=== PATIENT | female | born 1995 | race Caucasian/White ===

== ENCOUNTER 2016-10-20 10:16 | Emergency (ER) | payer MEDICAID ==
[2016-10-20] MEDS ORDERED: ALBUTEROL 3 ML DEYVIAL ONE (10:35)
[2016-10-20 10:38] VITALS: BP 135/75; RESP 18; TEMP 98.2
--- NOTE | 2016-10-20 10:39 | EDPHY ---
H & P Stated Complaint: cough since last sunday, felt feverish, nausea and diarrhea. Time Seen by Provider: 10/20/16 10:32 HPI/ROS: Chief Complaint: Cough HPI: 21-year-old woman presenting with 1 week of cough productive of clear to whitish sputum for, subjective chills but has not taken her temperature at home. No shortness of breath. No chest pain. She is a smoker of both cigarettes and marijuana daily. No nausea or vomiting. Some loose stools. No blood or melena. ROS: 10 point Review of Systems is negative except as noted in the HPI. PMH: None Medications none Allergies: None Social History: Positive smoking, positive alcohol, daily marijuana Family History: non-contributory Physical Exam: Gen: Awake, Alert, No Distress HEENT: Nose: no rhinorrhea Eyes: PERRLA, EOMI Mouth: Moist mucosa Neck: Supple, no JVD Chest: nontender, diffuse expiratory wheezing, no focal crackles Heart: S1, S2 normal, no murmur Abd: Soft, non-tender, no guarding Back: no CVA tenderness, no midline tenderness Ext: no edema, non-tender Skin: no rash Neuro: CN II-XII intact, Sensation grossly intact, Strength 5/5 in bilateral upper and lower extremities - Personal History LMP (Females 10-55): 15-21 Days Ago - Medical/Surgical History Other PMH: kidney infections - Social History Smoking Status: Current every day smoker Constitutional: Initial Vital Signs Temperature (C) 36.8 C 10/20/16 10:30 Heart Rate 80 10/20/16 10:30 Respiratory Rate 18 10/20/16 10:30 Blood Pressure 135/75 H 10/20/16 10:30 O2 Sat (%) 93 10/20/16 10:30 O2 Delivery Mode Room Air Allergies/Adverse Reactions: No Known Allergies Allergy (Unverified 10/20/16 10:29) Home Medications: Medication Instructions Recorded Albuterol [Proventil Inhaler HFA 1 - 2 puffs IH Q4H PRN #1 mdi 10/20/16 (*)] Inhaler, Assist Devices [Space 1 each MC Q4H PRN #1 spacer 10/20/16 Chamber Plus] Medical Decision Making ED Course/Re-evaluation: Patient is feeling better after an albuterol neb. She has some mild diffuse expiratory wheezing. Still no focal infiltrate on examination. She is not febrile. She has not have been sputum. Will discharge with an albuterol inhaler and spacer and follow up with primary care. - Data Points Medications Given: Discontinued Medications Albuterol (Proventil Neb) 3 ml IH EDNOW ONE Stop: 10/20/16 10:48 Last Admin: 10/20/16 10:47 Dose: 3 ml Departure - Departure Disposition: Home, Routine, Self-Care Clinical Impression: Bronchitis Condition: Good Instructions: Acute Bronchitis (ED), Wheezing (ED), How to Stop Smoking (ED) Additional Instructions: Follow up [facility] in 3-4 days if symptoms are not improving. Referrals: NONE *PRIMARY CARE P,. [Primary Care Provider] - As per Instructions [facility],. [Clinic] - As per Instructions Stand Alone Forms: Work Excuse Prescriptions: Albuterol [Proventil Inhaler HFA (*)] 1 - 2 puffs IH Q4H PRN #1 mdi PRN Reason: Wheezing Inhaler, Assist Devices [Space Chamber Plus] 1 each MC Q4H PRN #1 spacer PRN Reason: Wheezing
[2016-10-20] MEDS ORDERED: ALBUTEROL 3 ML DEYVIAL IH ONE (10:47)
[2016-10-20 11:55] VITALS: PULSE 89; O2SAT 97
== END 2016-10-20 11:45 | disposition home or self-care (01) ==
LOC: CED 10:16
DX: J40 Bronchitis, not specified as acute or chronic (principal); F17.210 Nicotine dependence, cigarettes, uncomplicated; F12.90 Cannabis use, unspecified, uncomplicated

== ENCOUNTER → 2017-01-03 | Emergency (ER) | payer MEDICAID | END | disposition left against medical advice (07) | LOC: CED 14:23 | DX: Z53.21 Procedure and treatment not carried out due to patient leaving prior to being seen by health care provider (principal) ==

== ENCOUNTER 2017-01-04 13:23 | Emergency (ER) | payer MEDICAID | END 2017-01-04 13:38 | disposition left against medical advice (07) | LOC: CED 13:23 | DX: Z53.21 Procedure and treatment not carried out due to patient leaving prior to being seen by health care provider (principal) ==

== ENCOUNTER 2017-02-08 20:57 | Emergency (ER) | payer MEDICAID ==
[2017-02-08] MEDS ORDERED: AZITHROMYCIN 250 MG TAB PO ONE (21:48)
[2017-02-08] MEDS ORDERED: METOCLOPRAMIDE 10 MG TAB PO ONE (21:49)
--- NOTE | 2017-02-08 21:53 | EDPHY ---
H & P Stated Complaint: ear bleeding, SURESH, vertigo Time Seen by Provider: 02/08/17 21:44 HPI/ROS: CHIEF COMPLAINT: Left ear pain and bleeding HISTORY OF PRESENT ILLNESS: The patient is a 21-year-old female who comes to the emergency department complaining of left-sided ear pain and fullness. Also noted some blood from it this morning. She has not had any bleeding since. She has had a slight sinus congestion as well. She states that the ear pain is giving her migraine which she has frequently. She tried taking ibuprofen without any significant improvement. She has not had a fever. REVIEW OF SYSTEMS: Constitutional: denies: chills, fever, recent illness, recent injury EENTM: See HPI Respiratory: denies: cough, shortness of breath Cardiac: denies: chest pain, irregular heart rate, lightheadedness, palpitations Gastrointestinal/Abdominal: denies: abdominal pain, diarrhea, nausea, vomiting, blood streaked stools Genitourinary: denies: dysuria, frequency, hematuria, pain Musculoskeletal: denies: joint pain, muscle pain Skin: denies: lesions, rash, jaundice, bruising Neurological: denies: headache, numbness, paresthesia, tingling, dizziness, weakness Hematologic/Lymphatic: denies: blood clots, easy bleeding, easy bruising Immunologic/allergic: denies: HIV/AIDS, transplant EXAM: GENERAL: Well-appearing, well-nourished and in no acute distress. HEAD: Atraumatic, normocephalic. EYES: Pupils equal round and reactive to light, extraocular movements intact, sclera anicteric, conjunctiva are normal. ENT: Left tympanic membrane with purulent effusion, no rupture, no bleeding, canal normal. nares patent, oropharynx clear without exudates. Moist mucous membranes. NECK: Normal range of motion, supple without lymphadenopathy or JVD. LUNGS: Breath sounds clear to auscultation bilaterally and equal. No wheezes rales or rhonchi. HEART: Regular rate and rhythm without murmurs, rubs or gallops. ABDOMEN: Soft, nontender, normoactive bowel sounds. No guarding, no rebound. No masses appreciated. BACK: No CVA tenderness, no spinal tenderness, step-offs or deformities EXTREMITIES: Normal range of motion, no pitting or edema. No clubbing or cyanosis. NEUROLOGICAL: Cranial nerves II through XII grossly intact. Normal speech, normal gait. 5/5 strength, normal movement in all extremities, normal sensation PSYCH: Normal mood, normal affect. SKIN: Warm, dry, normal turgor, no visible rashes or lesions. Source: Patient Exam Limitations: No limitations - Personal History LMP (Females 10-55): 1-7 Days Ago Current Tetanus/Diphtheria Vaccine: Yes - Medical/Surgical History Hx Asthma: No Hx Chronic Respiratory Disease: No Hx Diabetes: No Hx Cardiac Disease: No Hx Renal Disease: No Hx Cirrhosis: No Hx Alcoholism: No Hx HIV/AIDS: No Hx Splenectomy or Spleen Trauma: No Other PMH: PMHx: kidney infections. PSHx: laser surgery on chest as child - Family History Significant Family History: No pertinent family hx - Social History Smoking Status: Current every day smoker Alcohol Use: Sober Drug Use: None Constitutional: Initial Vital Signs Temperature (C) 36.8 C 02/08/17 21:00 Heart Rate 63 02/08/17 21:00 Respiratory Rate 14 02/08/17 21:00 Blood Pressure 114/62 02/08/17 21:00 O2 Sat (%) 97 02/08/17 21:00 O2 Delivery Mode Room Air Allergies/Adverse Reactions: No Known Allergies Allergy (Unverified 10/20/16 10:29) Home Medications: Medication Instructions Recorded Albuterol [Proventil Inhaler HFA 1 - 2 puffs IH Q4H PRN #1 mdi 10/20/16 (*)] Inhaler, Assist Devices [Space 1 each MC Q4H PRN #1 spacer 10/20/16 Chamber Plus] Azithromycin 250 mg PO DAILY #4 tablet 02/08/17 Medical Decision Making ED Course/Re-evaluation: The patient has otitis media. I will treat her with azithromycin. She states that it is giving her migraine. I will treat her with Reglan. She is happy with this plan and declines further workup or testing at this time. She is not driving. We discussed indications for returning. We also discussed importance of follow-up. Differential Diagnosis: Partial list of the Differential diagnosis considered include but were not limited to; otitis media, otitis externa cut trauma, migraine and although unlikely based on the history and physical exam, I also considered abscess, malignant otitis, aneurysm, hemorrhage . I discussed these differential diagnoses and the plan with the patient as well as the usual and expected course. The patient understands that the diagnosis is provisional and that in medicine we are not always correct and that further workup is often warranted. Usual and customary warnings were given. All of the patient's questions were answered. The patient was instructed to return to the emergency department should the symptoms at all worsen or return, otherwise to followup with the physician as we discussed. - Data Points Medications Given: Discontinued Medications Azithromycin (Zithromax) 500 mg PO EDNOW ONE PRN Reason: Protocol Stop: 02/08/17 21:49 Last Admin: 02/08/17 22:33 Dose: 500 mg Metoclopramide HCl (Reglan) 10 mg PO EDNOW ONE Stop: 02/08/17 21:50 Last Admin: 02/08/17 22:33 Dose: 10 mg Departure - Departure Disposition: Home, Routine, Self-Care Clinical Impression: Left otitis media Qualifiers: Otitis media type: suppurative Chronicity: acute Recurrence: not specified as recurrent Spontaneous tympanic membrane rupture: without spontaneous rupture Qualified Code(s): H66.002 - Acute suppurative otitis media without spontaneous rupture of ear drum, left ear Headache Qualifiers: Headache type: unspecified Headache chronicity pattern: acute headache Intractability: not intractable Qualified Code(s): R51 - Headache Condition: Fair Instructions: Otitis Media (ED), Acute Headache (ED) Referrals: Margarette Medellin [Primary Care Provider] - As per Instructions Prescriptions: Azithromycin 250 mg PO DAILY #4 tablet
[2017-02-08 22:37] VITALS: BP 116/67; PULSE 71; RESP 16; TEMP 98.1; O2SAT 96
== END 2017-02-08 22:36 | disposition home or self-care (01) ==
DX: H66.002 Acute suppurative otitis media without spontaneous rupture of ear drum, left ear (principal); R51 Headache; F17.200 Nicotine dependence, unspecified, uncomplicated

== ENCOUNTER 2017-03-22 13:47 | Emergency (ER) | payer MEDICAID ==
--- NOTE | 2017-03-22 13:59 | EDPHY ---
H & P Stated Complaint: COUGH/RUNNY NOSE 1 WEEK Time Seen by Provider: 03/22/17 13:59 HPI/ROS: CHIEF COMPLAINT: Rhinorrhea, cough, back pain HISTORY OF PRESENT ILLNESS: The patient presents to the with a 1 history of worsening cough, rhinorrhea and back pain. The patient has a history of frequent urinary tract infections. She has had some mild symptoms of dysuria. The patient denies recent antibiotic use. The patient denies any complaints of abdominal pain, vomiting or diarrhea. She has mild associated dyspnea. The patient denies significant sore throat. The patient denies recent medication changes. The patient states her symptoms of cough and rhinorrhea are moderate in nature. REVIEW OF SYSTEMS: A comprehensive 10 point review of systems is otherwise negative aside from elements mentioned in the history of present illness. Source: Patient - Personal History LMP (Females 10-55): 22-28 Days Ago Current Tetanus/Diphtheria Vaccine: Yes - Medical/Surgical History Hx Asthma: No Hx Chronic Respiratory Disease: No Hx Diabetes: No Hx Cardiac Disease: No Hx Renal Disease: No Hx Cirrhosis: No Hx Alcoholism: No Hx HIV/AIDS: No Hx Splenectomy or Spleen Trauma: No Other PMH: PMHx: kidney infections. PSHx: laser surgery on chest as child - Social History Smoking Status: Current every day smoker - Physical Exam Exam: General Appearance: Alert, no distress Eyes: Pupils equal and round no pallor or injection ENT, Mouth: Mucous membranes moist Respiratory: Diffuse expiratory wheezing Cardiovascular: Regular rate and rhythm Gastrointestinal: Abdomen is soft and nontender, no masses, bowel sounds normal Neurological: A&O, normal motor function, normal sensory exam, normal cranial nerves Skin: Warm and dry, no rashes Musculoskeletal: Neck is supple nontender Extremities: symmetrical, full range of motion Constitutional: Initial Vital Signs Temperature (C) 36.6 C 03/22/17 13:51 Heart Rate 80 03/22/17 13:51 Respiratory Rate 18 03/22/17 13:51 Blood Pressure 119/74 03/22/17 13:51 O2 Sat (%) 94 03/22/17 13:51 O2 Delivery Mode Room Air Allergies/Adverse Reactions: No Known Allergies Allergy (Verified 03/22/17 13:50) Home Medications: Medication Instructions Recorded Albuterol [Proventil Inhaler HFA 1 - 2 puffs IH Q4H PRN #1 mdi 10/20/16 (*)] Inhaler, Assist Devices [Space 1 each MC Q4H PRN #1 spacer 10/20/16 Chamber Plus] Acyclovir 03/22/17 Albuterol [Ventolin Hfa Inhaler] 2 puffs IH QID PRN #1 mdi 03/22/17 Risperdal 03/22/17 Seroquel 03/22/17 Medical Decision Making - Diagnostics Imaging Results: Imaging Impressions Chest X-Ray 03/22/17 14:02 Impression: 1. Bronchitis/airways disease. 2. No definite focal pneumonia. ED Course/Re-evaluation: The patient presents to the ED with a one-week history of worsening cough, dyspnea and a have wheezing on exam. The patient has no history of asthma. She did receive a DuoNeb. Chest x-ray was ordered which demonstrates no evidence of acute pneumonia. The patient's urinalysis demonstrates no evidence of urinary tract infection. The patient has no acute hypoxemia. The patient was re-evaluated at 3:45 p.m.. Her wheezing has improved. She will be discharged home with a prescription for albuterol. She is advised to use Tylenol and ibuprofen as needed for her pain. She should return to the ED for markedly worsening symptoms or other concerns. Differential Diagnosis: Differential diagnosis considered includes asthma, bronchitis, pneumonia, urinary tract infection - Data Points Laboratory Results: 03/22/17 03/22/17 14:27 14:20 Urine Color YELLOW Urine Appearance HAZY Urine pH 6.0 (5.0-7.5) Ur Specific Allen 1.012 (1.002-1.030) Urine Protein NEGATIVE (NEGATIVE) Urine Ketones NEGATIVE (NEGATIVE) Urine Blood NEGATIVE (NEGATIVE) Urine Nitrate NEGATIVE (NEGATIVE) Urine Bilirubin NEGATIVE (NEGATIVE) Urine Urobilinogen NEGATIVE EU EU (0.2-1.0) Ur Leukocyte Esterase NEGATIVE (NEGATIVE) Urine Glucose NEGATIVE (NEGATIVE) Urine Test NEGATIVE Medications Given: Discontinued Medications Albuterol/Ipratropium (Duoneb) 3 ml IH EDNOW ONE Stop: 03/22/17 14:03 Last Admin: 03/22/17 14:12 Dose: 3 ml Ibuprofen (Motrin) 600 mg PO EDNOW ONE Stop: 03/22/17 14:29 Last Admin: 03/22/17 14:33 Dose: 600 mg Departure - Departure Disposition: Home, Routine, Self-Care Clinical Impression: Acute bronchitis Condition: Good Instructions: Acute Bronchitis (ED) Additional Instructions: 1. Albuterol inhaler up to every 2 hours as needed for cough and shortness of breath. 2. Tylenol and ibuprofen as needed for pain. 3. Return to the ED for markedly worsening symptoms, high fever or other concerns. 3. Your chest x-ray demonstrates no evidence of a pneumonia. Your urine test demonstrates no evidence of an infection. Referrals: Margarette Medellin [Primary Care Provider] - As per Instructions
[2017-03-22] MEDS ORDERED: IPRATROPIUM/ALBUTEROL 3 ML DEYVIAL IH ONE (14:02)
[2017-03-22] MEDS ORDERED: IBUPROFEN 600 MG TAB PO ONE (14:28)
[2017-03-22 14:40] LABS: COLOR YELLOW; LEUKOCYTE ESTERASE,URINE NEGATIVE (NEGATIVE); NITRITE,URINE NEGATIVE (NEGATIVE)
[2017-03-22 15:58] VITALS: BP 121/82; PULSE 67; RESP 16; TEMP 98.4; O2SAT 95
== END 2017-03-22 16:03 | disposition home or self-care (01) ==
DX: J20.9 Acute bronchitis, unspecified (principal); F17.200 Nicotine dependence, unspecified, uncomplicated

== ENCOUNTER 2017-07-10 14:14 | Emergency (ER) | payer SELFPAY ==
--- NOTE | 2017-07-10 14:24 | EDPHY ---
H & P Stated Complaint: painful "abcess" in vaginal area x 3 days Time Seen by Provider: 07/10/17 14:23 HPI/ROS: HPI: This is a 21-year-old female who presents with Chief Complaint: painful "abscess" in vaginal area x 3 days Location: Groin Quality: Abscess Duration: 3 days Signs and Symptoms: no fever, no nausea, no vomiting, no hematemesis, no blood in stool, no abdominal bloating, no diarrhea, no back pain, no urinary symptoms , no testicular/groin pain, no indigestion, no chest pain, no shortness of breath Timing: Rapid onset Severity: Moderate Context: Patient has a history of genital herpes presents with outbreak within the last 24 hr intravaginally and she is out of her acyclovir that she normally takes twice a day x5 days when she has an outbreak. She also complains of an ingrown hair or abscess on her external groin area. She does shave her genital area. It is extremely painful and she initially thought it was herpes infection but did not develop a blister. It has continued to james and grownin size. Modifying Factors: None Comment: ROS: see HPI Constitutional: No fever, no chills, no weight loss Eyes: No blurred vision Respiratory: No shortness of breath, no cough Cardiovascular: No chest pain, no palpitations Gastrointestinal: No nausea, no vomiting, no diarrhea, no hematemesis, no blood in stool Genitourinary: No dysuria, no blood in urine Extremities: No myalgias, no edema Neurologic: No weakness, no numbness Skin: No rashes, no petechiae Hematologic: No bruising, no bleeding MEDICAL/SURGICAL/SOCIAL HISTORY: Medical history: Depression, pyelonephritis, herpes Surgical history: Denies Social history: Employed. CONSTITUTIONAL: Well-appearing, well-developed well-nourished young adult female, pain hair, awake and alert, no obvious distress HEENT: Atraumatic and normocephalic, PERRL, EOMI. Tympanic membranes clear. Oropharynx clear, no exudate and moist pink mucosa. Airway patent. No lymphadenopathy. No meningismus. Cardiovascular: Normal S1/S2, regular rate, regular rhythm, without murmur rub or gallop. PULMONARY/CHEST: Symmetrical and nontender. Clear to auscultation bilaterally. Good air movement. No accessory muscle usage. ABDOMEN: Soft, nondistended, nontender, no rebound, no guarding, no peritoneal signs, no masses or organomegaly. No CVAT. PELVIC: 6 mm raised, erythematous, fluctuant area on her pubic mons EXTREMITIES: 2/2 pulses, strength 5/5, no deformities, no clubbing, no cyanosis or edema. NEUROLOGICAL: no focal neuro deficits. GCS 15. SKIN: Warm and dry, no erythema. no rash. Good capillary refill. Source: Patient Exam Limitations: No limitations - Personal History LMP (Females 10-55): 22-28 Days Ago Current Tetanus/Diphtheria Vaccine: Unsure Current Tetanus Diphtheria and Acellular Pertussis (TDAP): Unsure - Medical/Surgical History Hx Asthma: No Hx Chronic Respiratory Disease: No Hx Diabetes: No Hx Cardiac Disease: No Hx Renal Disease: No Hx Cirrhosis: No Hx Alcoholism: No Hx HIV/AIDS: No Hx Splenectomy or Spleen Trauma: No Other PMH: PMHx: pylo, herpes - Social History Smoking Status: Current every day smoker Constitutional: Initial Vital Signs Temperature (C) 37.0 C 07/10/17 14:19 Heart Rate 78 07/10/17 14:19 Respiratory Rate 16 07/10/17 14:19 Blood Pressure 110/69 07/10/17 14:19 O2 Sat (%) 97 07/10/17 14:19 O2 Delivery Mode Room Air Allergies/Adverse Reactions: No Known Allergies Allergy (Verified 03/22/17 13:50) Home Medications: Medication Instructions Recorded Acyclovir 07/10/17 Acyclovir 800 mg PO BID 5 Days tablet 07/10/17 Seroquel 07/10/17 Sulfamethox/Tmp 800/160 mg 1 tab PO BID #14 tab 07/10/17 [Bactrim Ds] Wellbutrin Sr 07/10/17 Medical Decision Making Procedures: Procedure: Abscess drainage. The patient's abscess was located on the pubic mons topical anesthetic was used for anesthesia consisting of 0.5% 5 mL bupivacaine. I obtained verbal consent from the patient to drain the abscess who was informed about the possibility of bleeding and pain. The abscess was incised with #11 scalpel and a 5 mL amount of purulent drainage was expressed. I irrigated the wound and placed some packing. The patient tolerated the procedure well. The procedure was performed by myself. ED Course/Re-evaluation: Patient given acyclovir for recurrent herpes infection. I&D performed on the pubic mons abscess; given Bactrim This patient was seen under the supervision of my secondary supervising physician. I evaluated care for this patient independently. Differential Diagnosis: Differential diagnosis includes herpes, cellulitis, abscess, folliculitis. - Data Points Medications Given: Discontinued Medications Acyclovir (Acyclovir) 800 mg PO EDNOW ONE Stop: 07/10/17 14:47 Last Admin: 07/10/17 14:54 Dose: 800 mg Departure - Departure Disposition: Home, Routine, Self-Care Clinical Impression: Abscess of pubic region Genital herpes Qualifiers: Herpes simplex infection site: vulvovaginitis Qualified Code(s): A60.04 - Herpesviral vulvovaginitis Condition: Good Instructions: Abscess (ED), Acute Wounds (ED) Additional Instructions: Keep the dressing and packing dry and in place for 48 hours. After 48 hours, you may remove the dressing; wash the site daily with mild soap and water; then pat dry. Take Tylenol 650 mg every 4 hours and/or Ibuprofen 600 mg every 8 hours with food as needed for pain. Take all of the Bactrim until complete. Do not miss a dose. Please establish care with primary care provider and OBGYN within the next 1-2 weeks. Keep the dressing and packing dry and in place for 48 hours. After 48 hours, you may remove the dressing; wash the site daily with mild soap and water; then pat dry. Take Tylenol 650 mg every 4 hours and/or Ibuprofen 600 mg every 8 hours with food as needed for pain. Observe pelvic rest until infection has resolved. Referrals: Margarette Medellin [Primary Care Provider] - As per Instructions [facility],. [Clinic] - As per Instructions Prescriptions: Acyclovir 800 mg PO BID 5 Days tablet Sulfamethox/Tmp 800/160 mg [Bactrim Ds] 1 tab PO BID #14 tab
[2017-07-10 14:29] VITALS: TEMP 97.7
[2017-07-10] MEDS ORDERED: ACYCLOVIR 400 MG TAB PO ONE (14:46)
[2017-07-10] MEDS ORDERED: SULFAMETHOX/TMP 800/160 MG 1 TAB PO ONE (15:22)
[2017-07-10 15:29] VITALS: BP 130/86; PULSE 84; RESP 18; O2SAT 95
== END 2017-07-10 15:46 | disposition home or self-care (01) ==
PROC: 0U9M0ZZ Drainage of Vulva, Open Approach (ICD-10-PCS; principal; 2017-07-10)
DX: L02.215 Cutaneous abscess of perineum (principal); A60.04 Herpesviral vulvovaginitis; F17.200 Nicotine dependence, unspecified, uncomplicated